=== PATIENT | female | born 1940 | race Caucasian/White ===

== ENCOUNTER → 2016-08-08 | Outpatient (CLI) | payer MEDICARE | LOC: KOH-I 09:21 | DX: M84.372D Stress fracture, left ankle, subsequent encounter for fracture with routine healing (principal); R93.7 Abnormal findings on diagnostic imaging of other parts of musculoskeletal system | CPT/HCPCS: 73700 ==

== ENCOUNTER → 2016-11-01 | Outpatient (CLI) | payer MEDICARE | LOC: KOH-I 08:00 | DX: M84.372A Stress fracture, left ankle, initial encounter for fracture (principal); M76.72 Peroneal tendinitis, left leg | CPT/HCPCS: 73721 ==

== ENCOUNTER → 2020-06-17 | Outpatient (CLI) | payer MEDICARE ==
[~2020-06-17] MED LIST: PEPCID20 MG PO
== END ==
LOC: MRI 13:13
DX: M75.102 Unspecified rotator cuff tear or rupture of left shoulder, not specified as traumatic (principal); M24.012 Loose body in left shoulder; S43.492A Other sprain of left shoulder joint, initial encounter; X58.XXXA Exposure to other specified factors, initial encounter
CPT/HCPCS: 73221

== ENCOUNTER 2020-07-06 15:32 | Emergency (ER) | payer MEDICARE ==
[2020-07-06 16:31] LABS: HEMOGLOBIN 13.3 gm/dl (12.3-15.3); RED BLOOD COUNT 4.9 M/UL (4.00-5.10); WHITE BLOOD COUNT 6.3 K/UL (4.5-11.0)
[2020-07-06 17:13] LABS: BUN/CREATININE RATIO 22 (0-10)
== END 2020-07-06 18:41 | disposition home or self-care (01) ==
LOC: ER1 15:32
PROVIDERS: Internal Medicine
DX: R00.2 Palpitations (principal); R25.1 Tremor, unspecified; I48.91 Unspecified atrial fibrillation; Z90.49 Acquired absence of other specified parts of digestive tract; Z79.82 Long term (current) use of aspirin; Z88.2 Allergy status to sulfonamides; Z88.0 Allergy status to penicillin; Z91.041 Radiographic dye allergy status
CPT/HCPCS: 71046; 80053; 81001; 82550; 82553; 84439; 84443; 84484; 85025; 93005; 99285

== ENCOUNTER 2020-09-12 14:57 | Emergency (ER) | payer MEDICARE ==
[2020-09-12 15:51] LABS: HEMOGLOBIN 13.2 gm/dl (12.3-15.3); RED BLOOD COUNT 4.81 M/UL (4.00-5.10); WHITE BLOOD COUNT 7.3 K/UL (4.5-11.0)
[2020-09-12 16:19] LABS: BUN/CREATININE RATIO 13 (0-10)
[2020-09-12] MEDS ORDERED: PEPCID20 MG PO (19:10)
== END 2020-09-12 19:20 | disposition home or self-care (01) ==
LOC: ER1 14:57
PROVIDERS: Student in an Organized Health Care Education/Training Program
DX: R07.89 Other chest pain (principal); R10.13 Epigastric pain; I25.10 Atherosclerotic heart disease of native coronary artery without angina pectoris; I10 Essential (primary) hypertension; Z90.49 Acquired absence of other specified parts of digestive tract; Z88.0 Allergy status to penicillin; Z88.2 Allergy status to sulfonamides; Z88.8 Allergy status to other drugs, medicaments and biological substances; Z79.899 Other long term (current) drug therapy; Z20.822 Contact with and (suspected) exposure to COVID-19
CPT/HCPCS: 0240U; 71045; 80053; 81001; 82550; 82553; 83605; 83690; 83874; 83880; 84484; 85025; 93005; 99285; Q9967

== ENCOUNTER → 2021-03-08 | Outpatient (CLI) | payer MEDICARE | LOC: HEART 5 03-01 11:00 | DX: Z01.810 Encounter for preprocedural cardiovascular examination (principal); I48.91 Unspecified atrial fibrillation; I27.20 Pulmonary hypertension, unspecified; I08.3 Combined rheumatic disorders of mitral, aortic and tricuspid valves | CPT/HCPCS: 93306 ==

== ENCOUNTER → 2021-11-09 | Outpatient (CLI) | payer MEDICARE | LOC: HEART 5 09:12 | DX: I20.9 Angina pectoris, unspecified (principal); R94.39 Abnormal result of other cardiovascular function study | CPT/HCPCS: 78452; A9502; J2785 ==

== ENCOUNTER → 2021-12-25 | Outpatient (CLI) | payer MEDICARE ==
[~2021-12-25] MED LIST changes: +AZELASTIN-FLUTI23 GM; +CARBIDOPA-LEVO1 EAC1 PO; +DILTIAZEM 12HR120 MG PO; +DILTIAZEM ER120 M1 PO; +ELIQUIS5 MG PO; +HYDROCODON-ACE1 EAC4 PO; +ISOSORBIDE MONO60 MG PO; +LEVOTHYROXINE50 MC1 PO; +MIRALAX17 GM PO; +NITROSTAT 0.4100 TAB SL; +RESTORIL15 MG PO; +TOPROL XL 50 MG50 MG PO; +ULTRAM50 MG PO
[2021-12-25 12:06] LABS: HEMOGLOBIN 12.5 gm/dl (12.3-15.3); RED BLOOD COUNT 4.67 M/UL (4.00-5.10)
[2021-12-25 12:59] LABS: BUN/CREATININE RATIO 12 (0-10)
== END ==
LOC: LAB 11:07
PROVIDERS: Internal Medicine Cardiovascular Disease
DX: I48.91 Unspecified atrial fibrillation (principal); I20.9 Angina pectoris, unspecified; I10 Essential (primary) hypertension; R94.39 Abnormal result of other cardiovascular function study
CPT/HCPCS: 36415; 71046; 80048; 85025

== ENCOUNTER → 2021-12-27 | Outpatient (CLI) | payer MEDICARE | LOC: CATH 08:00 | DX: I25.119 Atherosclerotic heart disease of native coronary artery with unspecified angina pectoris (principal); I11.9 Hypertensive heart disease without heart failure; I48.0 Paroxysmal atrial fibrillation; E78.5 Hyperlipidemia, unspecified; I08.3 Combined rheumatic disorders of mitral, aortic and tricuspid valves; I27.20 Pulmonary hypertension, unspecified | CPT/HCPCS: 99152; 99153; C1769; C1894; J0360; J1644; J2250; J2930; J3010; J7040; Q9965 ==

== ENCOUNTER → 2022-01-18 | Outpatient (CLI) | payer MEDICARE ==
[~2022-01-18] VITALS: Ht 162.6 cm; Wt 56.2 kg
[~2022-01-18] MED LIST changes: +CETIRIZINE HCL10 MG PO; +CLONIDINE HCL0.1 M1 PO; +ISOSORBIDE MONO30 MG PO; -ISOSORBIDE MONO60 MG PO; +NYSTATIN60 GM TP; +OMEPRAZOLE20 M1 PO; +PROAIR HFA8.5 GM INH
[2022-01-18 11:59] LABS: HEMOGLOBIN 12.4 gm/dl (12.3-15.3); RED BLOOD COUNT 4.65 M/UL (4.00-5.10); WHITE BLOOD COUNT 6.5 K/UL (4.5-11.0)
[2022-01-18 12:19] LABS: BUN/CREATININE RATIO 17 (0-10)
== END ==
LOC: EDSTATUS 10:00 → OPSV2 10:00
PROVIDERS: Orthopaedic Surgery
DX: Z01.818 Encounter for other preprocedural examination (principal); M19.012 Primary osteoarthritis, left shoulder; R94.31 Abnormal electrocardiogram [ECG] [EKG]
CPT/HCPCS: 36415; 71046; 80048; 85025; 93005

== ENCOUNTER → 2022-02-07 | Outpatient (CLI) | payer MEDICARE ==
[~2022-02-07] MED LIST changes: +ELIQUIS2.5 MG PO; +HYDROCODON-ACE1 EAC5 PO; +ZOFRAN 4 MG TAB4 MG PO
[2022-02-07 14:35] LABS: BUN/CREATININE RATIO 30 (0-10)
== END ==
LOC: LAB 13:31
PROVIDERS: Orthopaedic Surgery
DX: Z01.812 Encounter for preprocedural laboratory examination (principal)
CPT/HCPCS: 36415; 80048; 86850; 86900; 86901